=== PATIENT | male | born 1990 | race Caucasian/White ===

== ENCOUNTER 2016-12-15 15:08 | Emergency (ER) | payer SELFPAY ==
[2016-12-15] MEDS ORDERED: AMOXICILLIN TR/POT CLAVULANATE 500-125 MG TAB PO ONE (15:37)
[2016-12-15] MEDS ORDERED: IBUPROFEN 800 MG TABLET PO ONE (15:38)
--- NOTE | 2016-12-15 16:00 | RADIOLOGY REPORT (SQ) ---
EXAM DESCRIPTION: WRIST RIGHT 3 VIEWS COMPLETED DATE/TIME: 12/15/2016 3:53 pm REASON FOR STUDY: dog bite COMPARISON: None. NUMBER OF VIEWS: Three views. TECHNIQUE: AP, lateral, and oblique radiographic images acquired of the right wrist. LIMITATIONS: None. FINDINGS: MINERALIZATION: Normal. BONES: No acute fracture or dislocation. No worrisome bone lesions. Normal alignment. SOFT TISSUES: No soft tissue swelling. No foreign body. OTHER: No other significant finding. IMPRESSION: NEGATIVE STUDY OF THE RIGHT WRIST. NO RADIOGRAPHIC EVIDENCE OF ACUTE INJURY. TECHNICAL DOCUMENTATION: JOB ID: [id number] [employer]- All Rights Reserved
--- NOTE | 2016-12-15 16:10 | ER Document Report ---
ED Animal Bite - General Chief Complaint: Dog Bite Stated Complaint: DOG BITE Time Seen by Provider: 12/15/16 15:30 TRAVEL OUTSIDE OF THE [place] IN LAST 30 DAYS: No - HPI Location of injury: RUE Severity of injury: Bitten Onset: Just prior to arrival Where did incident occur: neighbors house, he was feeding the dogs when they started to fight Context of attack: Animals fighting - was trying to seperate them Type of animal: Dog Appearance of animal: Appeared well Breed and color: nauruan saravia Animal's immunizations: UTD Animal captured or known: Yes - Related Data Allergies/Adverse Reactions: No Known Allergies Allergy (Verified 12/15/16 15:14) Past Medical History - Social History Smoking Status: Current Every Day Smoker Family History: Reviewed & Not Pertinent Patient has suicidal ideation: No Patient has homicidal ideation: No Renal/ Medical History: Denies: Hx Peritoneal Dialysis Traumatic Medical History: Denies: Hx Fractures - Immunizations Hx Diphtheria, Pertussis, Tetanus Vaccination: Yes Review of Systems - Review of Systems Constitutional: No symptoms reported Skin: See HPI Physical Exam - Vital signs Vitals: Temp Pulse Resp BP Pulse Ox 97.9 F 75 14 114/81 100 12/15/16 15:14 12/15/16 15:14 12/15/16 15:14 12/15/16 15:14 12/15/16 15:14 - General General appearance: Appears well, Alert In distress: None - Cardiovascular Pulses: Normal: Radial Normal capillary refill: Yes - Extremities General upper extremity: Normal inspection, Nontender, Normal color, Normal ROM , Normal strength, Normal temperature General lower extremity: Normal inspection, Nontender, Normal color, Normal ROM , Normal strength, Normal temperature, Normal weight bearing - Neurological Neuro grossly intact: Yes Cognition: Normal Orientation: AAOx4 Ivan Coma Scale Eye Opening: Spontaneous Ivan Coma Scale Verbal: Oriented Ivan Coma Scale Motor: Obeys Commands [place] Coma Scale Total: 15 Motor strength normal: LUE, RUE, LLE, RLE Additional motor exam normals: Equal ad clerk. No: Weakness Sensory: Normal - Skin Skin Temperature: Warm Skin Moisture: Dry Skin Color: Normal Skin Turgor: Elastic Skin irregularity: other - two puncture wounds on the wrist. one noted on the flexor and the other on the extensor surface of the wrist. Sensation and motor function intact Course - Re-evaluation Re-evalutation: 12/15/16 20:21 Patient is a 26-year-old male presents with a dog bite. Sensation and range of motion intact. No fracture or retained foreign body noted on x-ray. Patient irrigated with Betadine the bedside placed on Augmentin for prophylaxis. Patient educated on wound care. Stable for discharge home with strict follow- up instructions. - Vital Signs Vital signs: Temp Pulse Resp BP Pulse Ox 98.4 F 83 16 122/80 95 12/15/16 17:05 12/15/16 17:05 12/15/16 17:05 12/15/16 17:05 12/15/16 17:05 - Diagnostic Test Radiology reviewed: Image reviewed, Reports reviewed Discharge - Discharge Clinical Impression: Dog bite Condition: Good Disposition: HOME, SELF-CARE Instructions: Animal Bites ([facility]), Augmentin ([facility]), Use of Xbyj-Ieg-Pjqzaho Ibuprofen ([facility]) Additional Instructions: Dressing changes required twice a day please return to the emergency department or go to your primary care provider if your wounds show any signs of redness with tenderness and swelling and cloudy hand drainage. Please return with any fevers or chills as well Dressing changes twice a day until scabs develop. Keep your wounds clean, dry and covered. Prescriptions: Amox Tr/Potassium Clavulanate [Augmentin 875-125 Tablet] 1 tab PO BID 7 Days Forms: Return to Work
[2016-12-15 17:07] VITALS: BP 122/80
== END 2016-12-15 17:05 | disposition home or self-care (01) ==
LOC: ER 15:08
DX: S61.559A Open bite of unspecified wrist, initial encounter (principal); W54.0XXA Bitten by dog, initial encounter
CPT/HCPCS: 99283

== ENCOUNTER 2018-10-10 11:23 | Emergency (ER) | payer SELFPAY ==
[2018-10-10] MEDS ORDERED: ONDANSETRON 4 MG TAB.RAPDIS PO ONE (11:43)
[2018-10-10] MEDS ORDERED: THIAMINE HCL INJ 200 MG/2 ML VIAL IM ONE (11:43)
[2018-10-10] MEDS ORDERED: THIAMINE HCL 100 MG, FOLIC ACID 1 MG in NORMAL SALINE 250 ML IV ONE (11:45)
--- NOTE | 2018-10-10 11:47 | ER Document Report ---
ED Medical Screen (RME) - General Chief Complaint: Tremor Stated Complaint: BODYACHE Time Seen by Provider: 10/10/18 11:38 Mode of Arrival: Ambulatory Information source: Patient Notes: 28-year-old male presented to ED for cramping and numbness for the last 30 minutes got worse over the last 10 months. He drank a 1/5 bottle of Lauren last night. He states he drinks every night. He smokes 5-10 cigarettes a day and smokes weed. He states he lives with his parents right now. Will treat with thiamine and folic acid and IV fluids. Labs were sent. Will reassess after fluids. I have greeted and performed a rapid initial assessment of this patient. A comprehensive ED assessment and evaluation of the patient, analysis of test results and completion of medical decision making process will be conducted by an additional ED providers. TRAVEL OUTSIDE OF THE [place] IN LAST 30 DAYS: No - Related Data Allergies/Adverse Reactions: No Known Allergies Allergy (Verified 10/10/18 11:25) Past Medical History - Social History Frequency of alcohol use: Heavy Drug Abuse: Marijuana Renal/ Medical History: Denies: Hx Peritoneal Dialysis Traumatic Medical History: Denies: Hx Fractures - Immunizations Hx Diphtheria, Pertussis, Tetanus Vaccination: Yes Physical Exam - Vital signs Vitals: Temp Pulse Resp BP Pulse Ox 98.2 F 108 H 20 133/93 H 98 10/10/18 11:35 10/10/18 11:35 10/10/18 11:35 10/10/18 11:35 10/10/18 11:35 Course - Vital Signs Vital signs: Temp Pulse Resp BP Pulse Ox 98 F 81 16 140/80 H 99 10/10/18 16:03 10/10/18 16:03 10/10/18 15:02 10/10/18 16:03 10/10/18 16:03 - Laboratory Result Diagrams: 10/10/18 12:05 10/10/18 12:05 Laboratory results interpreted by me: 10/10/18 10/10/18 10/10/18 12:05 12:05 13:24 Hgb 17.8 H Glucose 162 H Urine Ketones TRACE H Ur Leukocyte Esterase SMALL H Doctor's Discharge - Discharge Clinical Impression: Tingling of both feet, Cramping of hands, Tingling in extremities Condition: Good Disposition: HOME, SELF-CARE Additional Instructions: You are seen in the emergency department this afternoon for cramping and numbness and tingling of your hands and arms in your mouth. It is unclear why this happened but most likely related to depletion of your electrolytes. We gave you thiamine, folic acid, and some IV fluids to help rehydrate you and replenish some essential nutrients. Your magnesium level was normal but at the low end of normal so I recommend that you supplement with some [id number] magnesium. Also, this could be related to your alcohol use. It is great that you want to stop drinking but be cautious when you do as you can withdraw from alcohol use. If you have similar symptoms, lose consciousness, have a seizure, develop acute weakness, or have any other concerns please merely return to the emergency department.
[2018-10-10] MEDS: RINGERS SOLUTION,LACTATED 1,000 ML IV PRN ×2 (12:10→14:35)
[2018-10-10 12:35] LABS: ALANINE AMINOTRANSFERASE 62 U/L (21-72); ALKALINE PHOSPHATASE 92 U/L (38-126); ANION GAP 14 (5-19); ASPARTATE AMINO TRANSFERASE 42 U/L (17-59); BILIRUBIN,DIRECT 0.3 mg/dL (0.0-0.4); BLOOD UREA NITROGEN 12 mg/dL (7-20); CALCIUM 10.1 mg/dL (8.4-10.2); CARBON DIOXIDE 24 mmol/L (22-30); CHLORIDE 102 mmol/L (98-107); GLUCOSE 162 mg/dL (75-110); POTASSIUM 4.1 mmol/L (3.6-5.0); SODIUM 140.4 mmol/L (137-145); TOTAL PROTEIN 8.1 g/dL (6.3-8.2)
[2018-10-10 12:39] LABS: ALCOHOL < 10 mg/dL (NONE DETECTED)
[2018-10-10 12:51] LABS: ABSOLUTE BASOPHILS # (AUTO) 0.1 10^3/uL (0.0-0.2); ABSOLUTE EOSINOPHILS # (AUTO) 0.2 10^3/uL (0.0-0.6); ABSOLUTE LYMPHOCYTES (AUTO) 2.2 10^3/uL (0.5-4.7); ABSOLUTE MONOCYTES (AUTO) 0.8 10^3/uL (0.1-1.4); ABSOLUTE NEUT (AUTO) 4.3 10^3/uL (1.7-8.2); BASOPHILS % (AUTO) 0.7 % (0-2); EOSINOPHILS % (AUTO) 2.5 % (0-6); HEMATOCRIT 49.9 % (37.9-51.0); HEMOGLOBIN 17.8 g/dL (13.5-17.0); LYMPHOCYTES % (AUTO) 29.1 % (13-45); MONOCYTES % (AUTO) 10.5 % (3-13); PLATELET COUNT 290 10^3/uL (150-450); RED CELL DISTRIBUTION WIDTH 12.5 % (11.5-14.0); SEGMENTED NEUTROPHILS % (AUTO) 57.2 % (42-78); TOTAL CELLS COUNTED % (AUTO) 100 %; WHITE BLOOD COUNT 7.5 10^3/uL (4.0-10.5)
[2018-10-10 12:53] LABS: MEAN CORPUSCULAR HEMOGLOBIN 32.9 pg (27.0-33.4); MEAN CORPUSCULAR HGB CONC 35.7 g/dL (32.0-36.0); MEAN CORPUSCULAR VOLUME 92 fl (80-97); RED BLOOD COUNT 5.41 10^6/uL (4.35-5.55)
--- NOTE | 2018-10-10 13:13 | ER Document Report ---
ED General - General Chief Complaint: Tremor Stated Complaint: BODYACHE Time Seen by Provider: 10/10/18 11:38 Mode of Arrival: Ambulatory Notes: 28-year-old male who is a daily drinker presents to the emergency department for chief complaint of cramping and tingling of his extremities and a "feeling of my insides feeling weird and getting pulled in". Patient states that he was cramping a little bit this lower extremities last night did not think anything of it but well he was driving had the symptoms prompting him to detoured to the emergency department. No shortness of breath or chest pain. Denies any fevers, chills, nausea, vomiting, diarrhea. Denies loss of consciousness during this. Denies confusion or anxiety. Denies headache, neck stiffness, dizziness, lightheadedness. Patient's appetite is okay. He states he drinks 4-5 tall boy beers a night. TRAVEL OUTSIDE OF THE [place] IN LAST 30 DAYS: No - Related Data Allergies/Adverse Reactions: No Known Allergies Allergy (Verified 10/10/18 11:25) Past Medical History - General Information source: Patient - Social History Smoking Status: Current Every Day Smoker Frequency of alcohol use: Heavy Drug Abuse: Marijuana Family History: Reviewed & Not Pertinent Patient has suicidal ideation: No Patient has homicidal ideation: No Renal/ Medical History: Denies: Hx Peritoneal Dialysis Traumatic Medical History: Denies: Hx Fractures - Immunizations Hx Diphtheria, Pertussis, Tetanus Vaccination: Yes Review of Systems - Review of Systems Constitutional: See HPI EENT: No symptoms reported Cardiovascular: See HPI Respiratory: See HPI Gastrointestinal: See HPI Genitourinary: See HPI Male Genitourinary: No symptoms reported Musculoskeletal: No symptoms reported Skin: No symptoms reported Hematologic/Lymphatic: No symptoms reported Neurological/Psychological: See HPI Physical Exam - Vital signs Vitals: Temp Pulse Resp BP Pulse Ox 98.2 F 108 H 20 133/93 H 98 10/10/18 11:35 10/10/18 11:35 10/10/18 11:35 10/10/18 11:35 10/10/18 11:35 - Notes Notes: PHYSICAL EXAMINATION: Reviewed vital signs and charting by RN GENERAL: Alert, interacts well. No acute distress. HEAD: Normocephalic, atraumatic. EYES: Pupils equal and round. Extraocular movements intact. ENT: Oral mucosa moist, tongue midline. NECK: Full range of motion. Supple. Trachea midline. LUNGS: Clear to auscultation bilaterally, no wheezes, rales, or rhonchi. No respiratory distress. HEART: Regular rate and rhythm. No murmur ABDOMEN: soft, non-tender. Non-distended. Bowel sounds present. no McBurney's point tenderness, no Jung sign. EXTREMITIES: Moves all 4 extremities spontaneously. No edema, No cyanosis. Normal distal neurovascular exam BACK: No CVAT NEUROLOGIC: Oriented and appropriate. Normal speech. Normal neurologic exam, no tremor noticed. PSYCH: Normal affect, normal mood. SKIN: Warm, dry, normal turgor. No rashes or lesions noted. Course - Re-evaluation Re-evalutation: 10/10/18 13:12 Overall well-appearing and calm in the room patient does have sinus tachycardia. But now normal sinus rhythm. Patient receiving IV fluids and thiamine. I have added a magnesium to the blood work. 10/10/18 15:18 Magnesium came back at 1.6. Patient states he is feeling much better after getting thiamine and folic acid and IV fluids. Patient alert and oriented with no symptoms currently. He wishes to go home and he has had a negative workup. At no time was there any evidence of seizure during his course and he clarified that it was more muscle cramping and numbness tingling. Patient is stable for discharge. - Vital Signs Vital signs: Temp Pulse Resp BP Pulse Ox 98.2 F 108 H 16 149/97 H 97 10/10/18 11:35 10/10/18 11:35 10/10/18 15:02 10/10/18 14:10 10/10/18 15:02 - Laboratory Result Diagrams: 10/10/18 12:05 10/10/18 12:05 Laboratory results interpreted by me: 10/10/18 10/10/18 10/10/18 12:05 12:05 13:24 Hgb 17.8 H Glucose 162 H Urine Ketones TRACE H Ur Leukocyte Esterase SMALL H Discharge - Discharge Clinical Impression: Tingling of both feet, Cramping of hands, Tingling in extremities Condition: Good Disposition: HOME, SELF-CARE Additional Instructions: You are seen in the emergency department this afternoon for cramping and numbness and tingling of your hands and arms in your mouth. It is unclear why this happened but most likely related to depletion of your electrolytes. We gave you thiamine, folic acid, and some IV fluids to help rehydrate you and replenish some essential nutrients. Your magnesium level was normal but at the low end of normal so I recommend that you supplement with some [id number] magnesium. Also, this could be related to your alcohol use. It is great that you want to stop drinking but be cautious when you do as you can withdraw from alcohol use. If you have similar symptoms, lose consciousness, have a seizure, develop acute weakness, or have any other concerns please merely return to the emergency department.
[2018-10-10 13:48] LABS: APPEARANCE,URINE CLEAR; BILIRUBIN,URINE NEGATIVE (NEGATIVE); COLOR,URINE YELLOW; GLUCOSE, URINE NEGATIVE (NEGATIVE); KETONES,URINE TRACE mg/dL (NEGATIVE); LEUKOCYTE ESTERASE,URINE SMALL (NEGATIVE); NITRITE,URINE NEGATIVE (NEGATIVE); PROTEIN,URINE NEGATIVE (NEGATIVE); URINE SPECIFIC GRAVITY 1.012; UROBILINOGEN,URINE NEGATIVE mg/dL (<2.0)
[2018-10-10 14:01] LABS: URINE AMPHETAMINES SCREEN NEGATIVE; URINE BARBITURATES SCREEN NEGATIVE; URINE BENZODIAZEPINES SCREEN NEGATIVE; URINE COCAINE SCREEN NEGATIVE; URINE MARIJUANA (THC) SCREEN UNCONFIRMED POSITIVE; URINE METHADONE SCREEN NEGATIVE; URINE PHENCYCLIDINE SCREEN NEGATIVE
[2018-10-10 16:03] VITALS: BP 140/80
== END 2018-10-10 16:03 | disposition home or self-care (01) ==
LOC: ER 11:23
DX: R25.2 Cramp and spasm (principal); R20.2 Paresthesia of skin; R00.0 Tachycardia, unspecified; R20.0 Anesthesia of skin; F12.10 Cannabis abuse, uncomplicated; F17.200 Nicotine dependence, unspecified, uncomplicated
CPT/HCPCS: 99284; 96361; 96365; 36415; 80307 ×2; 83735; 85025; 80053; 81001; S0119; J3490; J3411; J7050; J7120